=== PATIENT | female | born 1960 | race African-American/Black ===

== ENCOUNTER 2023-10-29 12:07 | Outpatient (REF) | payer MEDICARE, MEDICAID, SELFPAY ==
[2023-10-29 15:07] LABS: C Reactive Protein 0.33 mg/dL (< or = 0.50)
[2023-10-29 15:09] LABS: TSH reflex Free T4 2.42 uIU/mL (0.32-4.0)
[2023-10-29 15:21] LABS: Folate 5.8 ng/mL (> or = 4.0); Vitamin B12 462 pg/mL (200-900)
[2023-11-02 16:28] LABS: Vitamin D 25-OH, D2 <4 ng/mL; Vitamin D 25-OH, D3 31 ng/mL; Vitamin D 25-OH, Total 31 ng/mL (30-100)
== END 2023-10-29 12:08 | disposition home or self-care (01) ==
LOC: HO.LAB 12:07
PROVIDERS: PCP Internal Medicine; Visit Provider Nurse Practitioner Family
DX: K59.00 Constipation, unspecified (principal); E55.9 Vitamin D deficiency, unspecified; K52.9 Noninfective gastroenteritis and colitis, unspecified; K21.9 Gastro-esophageal reflux disease without esophagitis; K59.04 Chronic idiopathic constipation; R14.0 Abdominal distension (gaseous)
CPT/HCPCS: 36415; 82306; 82607; 82746; 84443; 86140; 99202

== ENCOUNTER 2023-10-29 12:07 | Outpatient (AMB) | payer MEDICARE, SELFPAY ==
--- NOTE | 2023-10-29 12:14 | A.OFFVIS_ITS ---
Vital Signs 10/29/23 12:18 Height 5 ft 4 in Weight 195 lb BMI 33.5 BP 128/60 Blood Pressure Location Lt brachial Position Sitting Pulse 80 Intake Visit Reasons: Diarrhea Intake Note: Patient new consult for diarrhea Patient cc: diarrhea, denies any other GI issues. Ski Topper Required: No Accompanied by: Self / Same As Patient Allergies penicillamine Allergy (Unknown, Verified 10/29/23 12:13) hives Penicillins [PENICILLINS] Allergy (Unknown, Verified 10/29/23 12:13) HIVES HPI HPI Diarrhea: Details: 63-year-old female with past medical history of diabetes, hypercholesteremia, hypertension, GERD, kidney transplant in March of 2023 is here today for initial consultation. Patient reports to have postprandial loose stools. Patient does admit that she is constipated for the most part. Denies melena, hematochezia, unintentional weight loss or ribbon like stools. Patient denies any dyspepsia, dysphagia or odynophagia. Patient is currently on omeprazole daily and her symptoms of acid reflux are suppressed for the most part. [facility] Medical History (Updated 11/04/23 @ 21:27 by Aster Prado, [facility]) Diabetes mellitus Hypercholesteremia Surgical History (Updated 10/29/23 @ 12:22 by Geetha Delgado) Kidney transplanted Family History (Updated 10/29/23 @ 12:23 by Geetha Delgado) Mother Heart attack Father No problems noted. Social History (Updated 10/29/23 @ 12:14 by Geetha Delgado) Household Members: Family Alcohol intake: never Patient Tobacco Use Status: Former Tobacco user Review of Systems Const Denies weight gain and Denies weight loss ENT Reports no additional complaints, Denies dysphagia and Denies odynophagia Card Reports no additional complaints Resp Reports no additional complaints GI Denies abdominal pain, Denies belching, Denies melena, Denies bloating, Denies change in bowel habits, Denies dysphagia, Denies excessive flatus, Denies dyspepsia, Denies heartburn, Denies diarrhea, Reports loose stools, Denies nausea, Denies odynophagia and Denies vomiting Reports no additional complaints Musc Reports no additional complaints Neuro Reports no additional complaints Psych Reports no additional complaints Endo Reports no additional complaints Physical Exam Vital Signs: Last Vital Signs Pulse 80 10/29/23 12:18 BP 128/60 10/29/23 12:18 BMI result Body Mass Index 33.5 Const General: healthy appearing and no acute distress Nutritional Appearance: obese Orientation/consciousness: patient oriented x3 Resp Effort & Inspection: normal respiratory effort, able to speak in complete sentences, no tracheal deviation and symmetric chest movement Auscultation: clear to auscultation bilaterally Cardio Rate: regular rate GI Inspection: Yes normal to inspection, No distended and Yes obesity Palpation (GI): Soft to palpation, not firm, nontender and No hepatosplenomegaly present Auscultation: normal bowel sounds General: Yes no CVA tenderness Back/Spine/Pelvis Back: no CVA tenderness Skin General skin exam: elasticity normal, turgor normal and dry skin Neuro General: patient oriented x3 Psych Appearance: grossly normal Mental Status: mental status grossly normal Assessment & Plan Assessment & Plan (1) Postprandial diarrhea: Code(s): K52.9 - Noninfective gastroenteritis and colitis, unspecified (2) GERD (gastroesophageal reflux disease): Code(s): K21.9 - Gastro-esophageal reflux disease without esophagitis Qualifiers: Esophagitis presence: esophagitis presence not specified Qualified Code(s): K21.9 - Gastro-esophageal reflux disease without esophagitis (3) Constipation: Code(s): K59.00 - Constipation, unspecified Qualifiers: Constipation type: chronic idiopathic constipation Qualified Code(s): K59.04 - Chronic idiopathic constipation (4) Abdominal bloating: Code(s): R14.0 - Abdominal distension (gaseous) Plan Will rule out IBD, malabsorption viral. Will check her thyroid. Patient will start taking Citrucel in the morning and senna at night time. She will call the office if she will continue to have symptoms. Patient was encouraged to increase fluid intake and activity to promote better bowel motility. Continue omeprazole. Patient will return in the office in 2 months, sooner on as needed basis. She is agreeable to this plan and verbalizes understanding of instructions. She was given the opportunity to ask questions and all questions answered. Thank you for allowing me to participate in her care Orders: Orders C Reactive Protein 10/29/23 K58.9 - Irritable bowel syndrome without diarrhea Calprotectin, Fecal 10/29/23 R15.9 - Full incontinence of feces Vitamin D 25-OH (D2 and D3) 10/29/23 E55.9 - Vitamin D deficiency, unspecified GI Panel 10/29/23 R19.7 - Diarrhea, unspecified TSH reflex Free T4 10/29/23 K59.00 - Constipation, unspecified Vitamin B12 and Folate 10/29/23 R19.7 - Diarrhea, unspecified Medications: New methylcellulose (laxative) (Citrucel) take it with full glass of water 500 mg PO DAILY 30 tabs 2RF K59.00 - Constipation, unspecified sennosides (Natural Senna Laxative) 17.2 mg (2 x 8.6 mg) PO BEDTIME 60 tabs 3RF constipation K59.00 - Constipation, unspecified Coding Level of Care Code New Pt Level 4 (57344) Diagnoses Postprandial diarrhea K52.9 Gastroesophageal reflux disease, unspecified whether esophagitis present K21.9 Esophagitis presence: esophagitis presence not specified Chronic idiopathic constipation K59.04 Constipation type: chronic idiopathic constipation Abdominal bloating R14.0 Time Spent (min) 45 Comment 30 minutes spent with patient and additional 15 minutes spent reviewing her records
[2023-10-29 12:18] VITALS: BP 128/60; PULSE 80; BMI 33.5
== END 2023-10-29 13:11 | disposition home or self-care (01) ==
PROVIDERS: PCP Internal Medicine; Visit Provider Nurse Practitioner Family
DX: K52.9 Noninfective gastroenteritis and colitis, unspecified (principal); K21.9 Gastro-esophageal reflux disease without esophagitis; K59.04 Chronic idiopathic constipation; R14.0 Abdominal distension (gaseous)
CPT/HCPCS: 99204

== ENCOUNTER 2023-11-11 13:59 | Outpatient (REF) | payer MEDICARE, MEDICAID, SELFPAY ==
[2023-11-11 16:12] LABS: Adenovirus F 40/41 Not Detected (Not Detect.); Astrovirus Not Detected (Not Detect.); Campylobacter Not Detected (Not Detect.); Cryptosporidium Not Detected (Not Detect.); Cyclospora cayetanensis Not Detected (Not Detect.); E. coli EAEC Not Detected (Not Detect.); E. coli EPEC Not Detected (Not Detect.); E. coli ETEC Not Detected (Not Detect.); E. coli STEC Not Detected (Not Detect.); Entamoeba histolytica Not Detected (Not Detect.); Giardia lamblia Not Detected (Not Detect.); Norovirus GI/GII Not Detected (Not Detect.); Plesiomonas shigelloides Not Detected (Not Detect.); Rotavirus A Not Detected (Not Detect.); Salmonella Not Detected (Not Detect.); Sapovirus Not Detected (Not Detect.); Shigella sp./EIEC Not Detected (Not Detect.); Vibrio Not Detected (Not Detect.); Vibrio Cholerae Not Detected (Not Detect.); Yersinia enterocolitica Not Detected (Not Detect.)
== END 2023-11-11 14:00 | disposition home or self-care (01) ==
LOC: HO.LNP 13:59
PROVIDERS: Visit Provider Nurse Practitioner Family
DX: R19.7 Diarrhea, unspecified (principal)
CPT/HCPCS: 87507

== ENCOUNTER 2023-11-15 13:48 | Outpatient (REF) | payer MEDICARE, MEDICAID, SELFPAY ==
[2023-11-20 15:19] LABS: Calprotectin, Fecal 290 mcg/g
== END 2023-11-15 13:49 | disposition home or self-care (01) ==
LOC: HO.LNP 13:48
PROVIDERS: Visit Provider Nurse Practitioner Family
DX: R15.9 Full incontinence of feces (principal)
CPT/HCPCS: 83993

== ENCOUNTER 2023-12-17 11:58 | Outpatient (AMB) | payer MEDICARE, MEDICAID, SELFPAY ==
--- NOTE | 2023-12-17 12:01 | MHC.OFFVIS ---
Vital Signs 12/17/23 12:02 Height 5 ft 4 in Weight 195 lb BMI 33.5 BP 132/66 Blood Pressure Location Lt brachial Position Sitting Pulse 79 Intake Visit Reasons: 6 month follow up Intake Note: Patient follow up for abdominal bloating and lab results. Patient cc: between diarrhea and constipation on and off. Denies any other GI issues. Hi Lo Driver Required: No Accompanied by: Self / Same As Patient Allergies penicillamine Allergy (Unknown, Verified 12/17/23 12:00) hives Penicillins [PENICILLINS] Allergy (Unknown, Verified 12/17/23 12:00) HIVES HPI HPI 6 month follow up: Details: LAST VISIT Postprandial diarrhea GERD (gastroesophageal reflux disease) Constipation Abdominal bloating Plan Will rule out IBD, malabsorption viral. Will check her thyroid. Patient will start taking Citrucel in the morning and senna at night time. She will call the office if she will continue to have symptoms. Patient was encouraged to increase fluid intake and activity to promote better bowel motility. Continue omeprazole. Patient will return in the office in 2 months, sooner on as needed basis. She is agreeable to this plan and verbalizes understanding of instructions. She was given the opportunity to ask questions and all questions answered. ? Thank you for allowing me to participate in her care Orders Orders C Reactive Protein 10/29/23 K58.9 Calprotectin, Fecal 10/29/23 R15.9 Vitamin D 25-OH (D2 and D3) 10/29/23 E55.9 GI Panel 10/29/23 R19.7 TSH reflex Free T4 10/29/23 K59.00 Vitamin B12 and Folate 10/29/23 R19.7 Medications New methylcellulose (laxative) (Citrucel) take it with full glass of water 500 mg PO DAILY 30 tabs 2RF K59.00 sennosides (Natural Senna Laxative) 17.2 mg (2 x 8.6 mg) PO BEDTIME 60 tabs 3RF constipation K59.00 TODAY'S VISIT Patient is here today for follow-up and to discuss lab results. Patient continues to have occasional postprandial loose stools and then constipation. However she does report that she is feeling better like she empties her bowels more now that she is take Citrucel and senna. Negative CRP, however she did have elevated stool calprotectin suggestive of possible colitis/Crohn type. Patient had colonoscopy done within the last 2 years and we pulled it out from [facility] and were able to see the report. No mentioned of biopsy of colonic mucosa except for excising the polyps and biopsy of the polyps. Patient should go for diagnostic colonoscopy, however we will 1st send patient for CT enterography to see if there is any involvement in the small bowel. Patient denies any melena, hematochezia, unintentional weight loss or ribbon like stools. Patient reports that she does have a good appetite. She is taking culture refill probiotics and seems to feel like her symptoms are improving. Reports that omeprazole is helping with acid reflux. Patient denies eating late at night. No symptoms at night time. [facility] Medical History (Updated 12/19/23 @ 14:50 by Aster Prado [facility]) Elevated fecal calprotectin Diabetes mellitus Hypercholesteremia Surgical History Kidney transplanted Family History Mother Heart attack Father No problems noted. Social History Household Members: Family Alcohol intake: never Patient Tobacco Use Status: Former Tobacco user Physical Exam Vital Signs: Last Vital Signs Pulse 79 12/17/23 12:02 BP 132/66 12/17/23 12:02 BMI result Body Mass Index 33.5 Results Reviewed Results Reviewed: Laboratory Tests 10/29/23 11/15/23 13:33 11:45 C-Reactive Protein 0.33 Vitamin B12 462 25-OH Vitamin D Total 31 Folate 5.8 TSH 2.42 Stool Calprotectin 290 H Assessment & Plan Assessment & Plan (1) Elevated fecal calprotectin: Code(s): R19.5 - Other fecal abnormalities Category: Medical (2) Postprandial diarrhea: Code(s): K52.9 - Noninfective gastroenteritis and colitis, unspecified (3) GERD (gastroesophageal reflux disease): Code(s): K21.9 - Gastro-esophageal reflux disease without esophagitis Qualifiers: Esophagitis presence: esophagitis presence not specified Qualified Code(s): K21.9 - Gastro-esophageal reflux disease without esophagitis (4) Constipation: Code(s): K59.00 - Constipation, unspecified Qualifiers: Constipation type: slow transit constipation Qualified Code(s): K59.01 - Slow transit constipation (5) Abdominal bloating: Code(s): R14.0 - Abdominal distension (gaseous) Plan Patient has increase in fecal calprotectin with normal CRP. Patient denies taking any ibuprofen or any NSAIDs. Patient has a history of kidney transplant in 2022 and is avoiding these type of medication. I will send patient for CT enterography to rule out any colitis or Crohn's that would show any involvement in her small bowel. Possibility is also proctitis. If positive patient might need to be treated with mesalamine enema and p.o. patient had negative GI panel. Next appointment we will discuss with patient going for possible colonoscopy diagnostic type. Patient is agreeable to this plan and verbalizes understanding of instructions. She was given the opportunity to ask questions and all questions answered. Thank you for allowing me to participate in her care Orders: Orders CT enterography 12/17/23 K52.9 - Noninfective gastroenteritis and colitis, unspecified, R10.9 - Unspecified abdominal pain, R19.5 - Other fecal abnormalities Blood Urea Nitrogen 12/17/23 R10.11 - Right upper quadrant pain CDiff Gene PCR Today R19.7 - Diarrhea, unspecified Creatinine 12/17/23 R10.11 - Right upper quadrant pain Coding Level of Care Code Est Pt Level 4 (75836) Diagnoses Elevated fecal calprotectin R19.5 Postprandial diarrhea K52.9 Gastroesophageal reflux disease, unspecified whether esophagitis present K21.9 Esophagitis presence: esophagitis presence not specified Slow transit constipation K59.01 Constipation type: slow transit constipation Abdominal bloating R14.0 Time Spent (min) 35 Comment 20 minutes spent with patient and additional 15 minutes spent reviewing her records
[2023-12-17 12:02] VITALS: BP 132/66; PULSE 79; BMI 33.5
== END 2023-12-17 12:56 | disposition home or self-care (01) ==
PROVIDERS: PCP Internal Medicine; Visit Provider Nurse Practitioner Family
DX: R19.5 Other fecal abnormalities (principal); K52.9 Noninfective gastroenteritis and colitis, unspecified; K21.9 Gastro-esophageal reflux disease without esophagitis; K59.01 Slow transit constipation; R14.0 Abdominal distension (gaseous)
CPT/HCPCS: 99214

== ENCOUNTER → 2023-12-17 11:58 | Outpatient (BNVA) | payer MEDICARE, MEDICAID, SELFPAY | PROVIDERS: PCP Internal Medicine; Visit Provider Nurse Practitioner Family | DX: K21.9 Gastro-esophageal reflux disease without esophagitis (principal); K52.9 Noninfective gastroenteritis and colitis, unspecified; K59.01 Slow transit constipation; R19.5 Other fecal abnormalities; R14.0 Abdominal distension (gaseous) | CPT/HCPCS: 99212 ==

== ENCOUNTER 2024-01-04 10:18 | Outpatient (REF) | payer MEDICARE, MEDICAID, SELFPAY ==
[2024-01-04 12:53] LABS: Blood Urea Nitrogen 29 mg/dL (9-16); Estimated Glomerular Filt Rate 37
== END 2024-01-04 10:19 | disposition home or self-care (01) ==
LOC: HO.LAB 10:18
PROVIDERS: Visit Provider Nurse Practitioner Family
DX: R10.11 Right upper quadrant pain (principal)
CPT/HCPCS: 36415; 82565; 84520

== ENCOUNTER 2024-01-06 12:58 | Outpatient (REF) | payer MEDICARE, MEDICAID, SELFPAY ==
--- NOTE | ~2024-01-06 | CT_ITS ---
EXAMINATION: CT ENTEROGRAPHY ABDOMEN AND PELVIS WITHOUT CONTRAST CLINICAL INFORMATION: Noninfectious gastroenteritis and colitis. COMPARISON: None available. TECHNIQUE: Multidetector volumetric imaging was performed of the abdomen and pelvis without intravenous contrast. Oral contrast was not administered. Coronal and sagittal reformatted images were obtained at the technologist's workstation. No intravenous access. This CT examination was performed using dose optimization techniques as appropriate, variously including the following: *Automated exposure control *Adjustment of mA and/or kV according to patient size (this includes techniques or standardized protocols for targeted exams where dose is matched to indication/reason for exam; i.e. extremities or head) *Use of iterative reconstruction technique DLP: 636 mGy-cm FINDINGS: GASTROINTESTINAL FINDINGS: Stomach: Satisfactorily distended and unremarkable. Small intestine: Not well distended. No abnormal dilatation. Large intestine: Moderate retained stool in the colon. No perirectal changes demonstrated. The appendix is nonvisualized. Additional findings: No abnormal enhancement of the vasa recta or significant mesenteric or retroperitoneal lymphadenopathy is seen. ABDOMINAL AND PELVIC CT FINDINGS: Liver, gallbladder, biliary tract: The noncontrast liver is normal in size and contour. No biliary ductal dilatation. The gallbladder is unremarkable. Pancreas: Unremarkable. Spleen: Unremarkable. Adrenal glands and kidneys: No adrenal mass. The [place] kidneys are atrophic. There is a right lower quadrant renal transplant. There is questionable edema of the transplant with subtle perinephric stranding. Mild fullness of the collecting system. No peritransplant fluid collection. Ureters and bladder: Unremarkable. Lymphovascular structures: Severe atherosclerotic vascular calcification of the abdominal aorta and major branch vessels. No abdominal aortic aneurysm. No bulky lymphadenopathy. Bones: No destructive bone lesions. Lung bases: Large pericardial effusion. Cardiac enlargement. CT/CT enterography IMPRESSION: Limited study due to lack of intravenous contrast. The small bowel is underdistended limiting evaluation. Large pericardial effusion. Cardiac enlargement. Right lower quadrant renal transplant with questionable transplant edema and mild fullness of the collecting system. Advise clinical correlation and consider dedicated imaging of the transplant kidney.
[2024-01-06] MEDS: Sorbitol/Mannit/Xanth Imaging 500 ML LIQUID 1500 ML PO (16:00)
== END 2024-01-06 12:59 | disposition home or self-care (01) ==
LOC: HO.CT 12:58
PROVIDERS: PCP Internal Medicine; Visit Provider Nurse Practitioner Family
DX: R10.9 Unspecified abdominal pain (principal); K52.9 Noninfective gastroenteritis and colitis, unspecified; R19.5 Other fecal abnormalities
CPT/HCPCS: 74177